=== PATIENT | female | born 1975 | race Caucasian/White ===

== ENCOUNTER 2020-05-13 14:53 | Emergency (ER) | payer MEDICAID ==
[~2020-05-13] VITALS: Ht 172.7 cm; Wt 99.0 kg
[2020-05-13] MEDS ORDERED: SODIUM CHLORIDE 0.9% 1,000 ML IV ONE (15:39)
[2020-05-13 16:23] LABS: BASOPHILS % 0.4 % (0.0-2.0); EOSINOPHILS % 1.4 % (0.0-5.0); HEMATOCRIT. 39.8 % (36.0-48.0); HEMOGLOBIN. 13.3 g/dL (12.0-16.0); LYMPHOCYTES % 18.7 % (20.0-50.0); MEAN CORPUSCULAR HEMOGLOBIN 30.4 pg (28.0-32.0); MEAN CORPUSCULAR VOLUME 90.6 fL (81.0-99.0); MEAN PLATELET VOLUME 7.7 fl (7.4-10.4); MONOCYTES % 4.8 % (2.0-8.0); NEUTROPHILS % 74.7 % (40.0-76.0); PLATELET 233 x1000/uL (130-400); RED BLOOD CELL COUNT 4.39 mill/uL (4.2-5.4)
[2020-05-13 16:29] LABS: CHLORIDE 108 mEq/L (98-107)
[2020-05-13 23:48] VITALS: BP 129/63
== END 2020-05-13 23:53 | disposition home or self-care (01) ==
LOC: ER 16:03
DX: R07.9 Chest pain, unspecified (principal); R06.02 Shortness of breath; F41.9 Anxiety disorder, unspecified
CPT/HCPCS: 36415; 71045; 80053; 81025; 84484; 85025; 85379; 93005; 96360; 96361; 99285; J7030

== ENCOUNTER 2020-10-08 14:49 | Emergency (ER) | payer MEDICAID ==
[~2020-10-08] VITALS: Ht 165.1 cm; Wt 110.0 kg
[2020-10-08 14:59] VITALS: BP 146/88
[2020-10-08] MEDS ORDERED: ACETAMINOPHEN 325MG TABLET PO ONE (16:30)
[2020-10-08] MEDS ORDERED: IBUP-2029 MT (17:26)
== END 2020-10-08 17:53 | disposition home or self-care (01) ==
LOC: ER 14:49
DX: M79.671 Pain in right foot (principal); F41.9 Anxiety disorder, unspecified
CPT/HCPCS: 73620; 99283

== ENCOUNTER 2021-01-31 16:45 | Emergency (ER) | payer MEDICAID ==
[~2021-01-31] VITALS: Ht 167.6 cm; Wt 107.0 kg
[~2021-01-31 16:45] MED LIST: IBUP-2029 MT
[2021-01-31 18:00] VITALS: BP 135/89
[2021-01-31] MEDS ORDERED: KETOROLAC 60MG/2ML VIAL IM ONE (18:45)
[2021-01-31] MEDS ORDERED: TRAM50TA3 MT (19:49)
[2021-01-31] MEDS ORDERED: IBUP-2030 MT (19:49)
== END 2021-01-31 20:39 | disposition home or self-care (01) ==
LOC: ER 17:20
DX: G89.29 Other chronic pain (principal); M25.562 Pain in left knee; M19.90 Unspecified osteoarthritis, unspecified site
CPT/HCPCS: 73562; 81025; 96372; 99283; J1885